=== PATIENT | male | born 1940 | race Caucasian/White ===

== ENCOUNTER → 2018-12-29 11:00 | Outpatient (CLI) | payer MEDICARE, SELFPAY ==
--- NOTE | 2018-12-29 | DI.CT.S_ITS ---
PROCEDURE: CT CHEST ABDOMEN W CON INDICATIONS: ELEVATED LIVER ENZYMES/CHRONIC FATIGUE TECHNIQUE: After the administration of oral contrast and intravenous contrast, 5 mm thick sections acquired from the lung apices to the iliac crests. 5 mm coronal and sagittal reformats were performed, with additional 7 mm coronal MIP reformats through the lungs. For radiation dose reduction, the following was used: automated exposure control, adjustment of mA and/or kV according to patient size. COMPARISON: [facility], CT, SOFT TISSUE NECK W CONTRAST, 04/23/2016, 8:53. FINDINGS: Image quality: Excellent. CHEST: Lungs and pleura: No acute air space opacities on the right but there is a patchy pneumonia pattern density left lower lung, involving the lingular segment of the left lower lobe. A slight posterior left deep costophrenic sulcus effusion is present. This is not accessible for ultrasound-guided aspiration. No pneumothorax. Central and peripheral airways are patent and normal in caliber. More superiorly at the upper border of the area of airspace disease there is an ovoid area of indistinct marginated increased radiodensity measuring up to 1.5 x 2.4 cm (seen on series 7 image 19). This is considered most likely consolidative pneumonia but a mass lesion also could produce the appearance. Mediastinum: Heart size is normal. No pericardial effusion. No mediastinal or hilar adenopathy by size criteria. Thoracic aorta and central pulmonary arteries are normal in size. Esophagus is normal in caliber. No hiatal hernia. Chest wall: No axillary or supraclavicular adenopathy by size criteria. Thyroid gland appears normal where well visualized the except for presence of what appears to be a small cyst within the middle third of the right thyroid lobe measuring only approximately 11 mm in maximal dimension. ABDOMEN: Solid organs: Liver is normal in size and enhancement. Gallbladder appears contracted. Biliary system is non dilated. Pancreas enhances normally. Spleen is normal in size and enhancement. No adrenal nodules. Kidneys are normal in size and enhancement, without hydronephrosis. Peritoneum and bowel: Bowel loops demonstrate normal wall thickness and caliber. No free fluid or air. Nodes and vessels: No retroperitoneal or mesenteric adenopathy by size criteria. Aorta and inferior vena cava are normal in caliber. Bones: No suspicious bony lesions. No vertebral body compression fractures. Miscellaneous: No ventral hernias. IMPRESSION: Pneumonia pattern left lung, with a slight associated posterior left deep costophrenic sulcus slight effusion. As noted above at the upper margin of the area of airspace disease within the left upper lobe there is alveolar infiltration surrounding and abutting an area of what may be dense focal pneumonia but could represent a 1.5 x 2.4 cm mass lesion. This area should be further assessed by plain film after symptoms have resolved to confirm resolution. Through the liver parenchyma no mass or biliary distention is found. Dictated by: Nelson Wheatley M.D. on 12/29/2018 at 12:47 Approved by: Nelson Wheatley M.D. on 12/29/2018 at 12:54
== END ==
PROVIDERS: PCP Internal Medicine; Visit Provider Internal Medicine
DX: R74.8 Abnormal levels of other serum enzymes (principal); R53.82 Chronic fatigue, unspecified; J18.9 Pneumonia, unspecified organism
CPT/HCPCS: 71260; 74160; Q9967

== ENCOUNTER → 2019-01-30 11:02 | Outpatient (CLI) | payer MEDICARE, SELFPAY ==
[2019-01-30 13:24] LABS: BUN Creatinine Ratio 14.4 (6-22); Blood Urea Nitrogen 13 mg/dL (9-20); Estimated Glomerular Filt Rate > 60.0 mL/min (>60)
== END ==
PROVIDERS: PCP Internal Medicine; Visit Provider Internal Medicine
DX: R91.8 Other nonspecific abnormal finding of lung field (principal)
CPT/HCPCS: 36415; 82565; 84520

== ENCOUNTER → 2019-02-05 11:36 | Outpatient (CLI) | payer MEDICARE, SELFPAY ==
--- NOTE | 2019-02-05 11:59 | DI.CT.S_ITS ---
PROCEDURE: CT CHEST W CON INDICATIONS: LUNG MASS TECHNIQUE: After the administration of intravenous contrast, 5 mm thick sections acquired from the pulmonary apices to the posterior costophrenic angles. 7 mm thick coronal and sagittal MIP reformats were acquired. For radiation dose reduction, the following was used: automated exposure control, adjustment of mA and/or kV according to patient size. COMPARISON: [facility], CT, CT CHEST ABDOMEN W CON, 12/29/2018, 11:48. FINDINGS: Image quality: Excellent. Lungs and pleura: No new focal consolidation. There is interval improvement in areas of ill-defined nodular consolidation involving the left upper lobe/lingula since the prior study. Unchanged 5 mm pulmonary nodule seen on image 30 series 2. However, no more distant comparison studies are available. No pleural effusions or pneumothorax. Central and peripheral airways are patent and normal in caliber. Mediastinum: Heart size is normal. Coronary artery calcifications are present. No pericardial effusion. No mediastinal or hilar adenopathy by size criteria. Thoracic aorta and central pulmonary arteries are normal in size. Esophagus is normal in caliber. No hiatal hernia. Bones and chest wall: No suspicious bony lesions. No vertebral body compression fractures. No axillary or supraclavicular adenopathy by size criteria. Thyroid gland contains nonspecific sub-5 mm hypoattenuating nodules which could be better assessed with dedicated ultrasound as clinically warranted. Abdomen: Hepatic steatosis. IMPRESSION: Interval improvement in ill-defined and nodular consolidation seen within the left lung since the prior study in keeping with resolving infectious or inflammatory pneumonia. Unchanged 5 mm pulmonary nodule. No more remote comparison studies are available therefore recommend followup with noncontrast chest CT in 6 months. Additional chronic and incidental findings as above. Dictated by: Dipak Rodriguez M.D. on 02/05/2019 at 12:56 Approved by: Dipak Rodriguez M.D. on 02/05/2019 at 13:03
== END ==
PROVIDERS: PCP Internal Medicine; Visit Provider Internal Medicine
DX: R91.8 Other nonspecific abnormal finding of lung field (principal); I25.10 Atherosclerotic heart disease of native coronary artery without angina pectoris
CPT/HCPCS: 71260; Q9967

== ENCOUNTER → 2019-10-11 09:26 | Outpatient (CLI) | payer MEDICARE, SELFPAY ==
[2019-10-11 10:04] LABS: BUN Creatinine Ratio 16.7 (6-22); Blood Urea Nitrogen 15 mg/dL (9-20); Calcium 9.8 mg/dL (8.4-10.2); Carbon Dioxide 28 mmol/L (22-32); Chloride 100 mmol/L (98-107); Estimated Glomerular Filt Rate > 60.0 mL/min (>60); Glucose 182 mg/dL (80-110); HEMOLYSIS < 15 (0-50); Potassium 4.4 mmol/L (3.4-5.1); Sodium 137 mmol/L (137-145)
--- NOTE | 2019-10-11 10:23 | DI.CT.S_ITS ---
PROCEDURE: CT CHEST W CON INDICATIONS: Abnormal levels of other serum enzymes. Surveillance. Compared prior. Lung nodule, less than [address] TECHNIQUE: After the administration of intravenous contrast, 5 mm thick sections acquired from the pulmonary apices to the posterior costophrenic angles. 1 mm axial lung, 5 mm thick coronal and sagittal reformats and 7 mm axial MIP were acquired. For radiation dose reduction, the following was used: automated exposure control, adjustment of mA and/or kV according to patient size. COMPARISON: [facility], CT, CT CHEST ABDOMEN W CON, 12/29/2018, 11:48. [facility], CT, SOFT TISSUE NECK W CONTRAST, 04/23/2016, 8:53. [facility], CT, CT CHEST W CON, 02/05/2019, 11:43. FINDINGS: Image quality: Excellent. Lungs and pleura: Within the left lower lobe, there is again seen a soft tissue nodule, as on series 3 image 105 that measures 7 x 8 mm. This is mildly increased in size compared to the prior CT. Within this region, poorly defined opacity is seen, which is slightly worsened compared to 02/05/19. No acute air space opacities. No pleural effusions or pneumothorax. Central and peripheral airways are patent and normal in caliber. Mediastinum: Heart size is normal. Coronary artery calcifications are seen. No pericardial effusion. No mediastinal or hilar adenopathy by size criteria. Thoracic aorta and central pulmonary arteries are normal in size. Esophagus is normal in caliber. There is a small hiatal hernia. Bones and chest wall: No suspicious bony lesions. No vertebral body compression fractures. No axillary or supraclavicular adenopathy by size criteria. Thyroid gland demonstrates right sided nodules, including a nodule measuring up to 8 mm. The appearance of the thyroid is similar to 2016. Abdomen: Visualized upper abdominal solid organs appear normal. Upper abdominal bowel loops are normal in caliber. IMPRESSION: There is a left lower lobe pulmonary nodules seen, which is slightly increased in size compared to the prior chest CT. Surrounding inflammatory changes are seen, which are also more prominent than the prior CT. However, the left lower lobe process has clearly improved compared to the 12/29/18 examination, and may simply be related to a recurrent infectious or inflammatory process. As differential diagnosis includes neoplasm, however. Please consider a short term followup noncontrast chest CT in 3 months for further evaluation. Incidental note is made of: Stable stable right thyroid nodules Small hiatal hernia Dictated by: David Castañeda M.D. on 10/11/2019 at 12:45 Approved by: David Castañeda M.D. on 10/11/2019 at 12:51
== END ==
PROVIDERS: PCP Internal Medicine; Referring Provider Internal Medicine; Visit Provider Internal Medicine
DX: R91.8 Other nonspecific abnormal finding of lung field (principal); R74.8 Abnormal levels of other serum enzymes; K44.9 Diaphragmatic hernia without obstruction or gangrene; E04.2 Nontoxic multinodular goiter
CPT/HCPCS: 36415; 71260; 80048; Q9967

== ENCOUNTER → 2020-01-18 11:07 | Outpatient (CLI) | payer MEDICARE, SELFPAY ==
--- NOTE | 2020-01-18 | DI.CT.S_ITS ---
PROCEDURE: CT CHEST WO CON INDICATIONS: Solitary pulmonary nodule TECHNIQUE: Noncontrast 5 mm thick sections acquired from the pulmonary apices to the posterior costophrenic angles. 1 mm lung window, 5 mm thick coronal and sagittal and 7 mm axial MIP reformats were then acquired. For radiation dose reduction, the following was used: automated exposure control, adjustment of mA and/or kV according to patient size. COMPARISON: [facility], CT, CT CHEST W CON, 02/05/2019, 11:43. [facility], CT, CT CHEST ABDOMEN W CON, 12/29/2018, 11:48. [facility], CT, CT CHEST W CON, 10/11/2019, 10:17. FINDINGS: Image quality: Excellent. Lungs and pleura: No acute air space opacities. A previously identified rounded nodule at the left midlung measures 7 x 8 mm as was previously the case 10/11/19. No pleural effusions or pneumothorax. This was originally present on CT scanning 12/29/18 and has not changed. Central and peripheral airways are patent and normal in caliber. Mediastinum: Heart size is normal. No pericardial effusion. No mediastinal adenopathy by size criteria. Thoracic aorta and central pulmonary arteries are normal in size. Esophagus is normal in caliber. No hiatal hernia. Bones and chest wall: No suspicious bony lesions. No vertebral body compression fractures. No axillary or supraclavicular adenopathy by size criteria. Thyroid gland appears normal where well seen.. Abdomen: Visualized upper abdominal solid organs and bowel loops appear normal in the absence of contrast. IMPRESSION: Stable 7 x 8 mm pulmonary nodule left midlung, sharply demarcated, originally present on CT scan in 12/29/18 intermixed with a patchy pneumonia pattern also present at that time. Given the one-year followup no additional evaluation appears warranted in this structure likely represents an old granuloma. Dictated by: Nelson Wheatley M.D. on 01/18/2020 at 12:56 Approved by: Nelson Wheatley M.D. on 01/18/2020 at 13:01
== END ==
PROVIDERS: PCP Internal Medicine; Referring Provider Internal Medicine; Visit Provider Internal Medicine
DX: R91.1 Solitary pulmonary nodule (principal)
CPT/HCPCS: 71250

== ENCOUNTER → 2020-11-07 20:03 | Outpatient (ROUT) | payer MEDICARE, SELFPAY ==
[2020-11-07 20:48] LABS: Alanine Aminotransferase 33 IU/L (<50); Albumin 4.1 g/dL (3.5-5.0); Alkaline Phosphatase 76 U/L (38-126); Aspartate Aminotransferase 38 IU/L (17-59); BUN Creatinine Ratio 18.8 (6-22); Bilirubin Total 0.6 mg/dL (0.2-1.3); Blood Urea Nitrogen 18 mg/dL (9-20); Calcium 9.8 mg/dL (8.4-10.2); Carbon Dioxide 30 mmol/L (22-32); Chloride 99 mmol/L (98-107); Cholesterol 147 mg/dL (140-199); Estimated Glomerular Filt Rate > 60.0 mL/min (>60); Globulin 2.1 g/dL (1.7-4.1); Glucose 146 mg/dL (80-110); HDL Cholesterol 90 mg/dL (40-60); HEMOLYSIS < 15 (0-50); Hemoglobin A1C% w Est Avg Glu 5.9 % (4.0-6.0); LDL Cholesterol Calculated 39 mg/dL (<100); Potassium 4.5 mmol/L (3.4-5.1); Sodium 135 mmol/L (137-145); Total Protein 6.2 g/dL (6.3-8.2); Triglycerides 88 mg/dL (35-150)
== END ==
PROVIDERS: PCP Internal Medicine; Visit Provider Internal Medicine
DX: I10 Essential (primary) hypertension (principal); E11.9 Type 2 diabetes mellitus without complications; E78.2 Mixed hyperlipidemia
CPT/HCPCS: 80053; 80061; 83036

== ENCOUNTER → 2020-12-29 10:00 | Outpatient (CLI) | payer MEDICARE, SELFPAY ==
[2020-12-29 11:50] LABS: COVID19 -Nasal RAPID Negative (Negative)
== END ==
PROVIDERS: PCP Internal Medicine; Visit Provider Physician Assistant
DX: Z01.812 Encounter for preprocedural laboratory examination (principal); Z20.822 Contact with and (suspected) exposure to COVID-19
CPT/HCPCS: 87635; C9803

== ENCOUNTER 2020-12-31 09:23 | Day surgery (SDC) | payer MEDICARE, SELFPAY ==
--- NOTE | 2020-12-31 | PATH_ITS ---
[facility] Accession Number: [id number] . 01 Material submitted: . PART A: colon - ASCENDING COLON POLYPS X3 PART B: colon - TRANSVERSE COLON POLYP . 02 Diagnosis: A. Ascending Colon, Polyps x3, Biopsies: Tubular adenomas. . B. Transverse Colon, Polyp, Biopsy: Tubular adenoma. MRV 01/06/2021 1107 Local . 02 Electronically signed: . Annie Meade MD, Pathologist NPI- [id number] . 01 Gross description: . Part A: ASCENDING COLON POLYPS X3: Received in formalin are 3 fragment(s) of neff, soft tissue measuring 0.3 x 0.3 x 0.2 cm to 0.7 x 0.5 x 0.4 cm submitted entirely in 1 cassette(s) Part B: TRANSVERSE COLON POLYP: Received in formalin is 1 fragment(s) of neff, soft tissue measuring 0.8 x 0.3 x 0.3 cm submitted entirely in 1 cassette(s) /DAVE 01/02/2021 1907 Local . 02 Pathologist provided ICD-10: D12.2, D12.3 . 02 CPT . 138834, 214011 Performed at: 01 [facility] [address], [id number] MD Anthony Sprague MD Phone: [phone] Performed at: 02 [facility] [address] [place], [place] [id number] MD Annie Meade MD Phone: [phone]
[2020-12-31 09:43] VITALS: BP 157/82; PULSE 80; RESP 13; TEMP 36.1; O2SAT 100; BMI 25.1
[2020-12-31] MEDS: LACTATED RINGERS 1,000 ML 200 ML IV (10:04)
--- NOTE | 2020-12-31 10:54 | PM.HP.1 ---
History of Present Illness History of Present Illness Chief complaint: SCREENING COLONOSCOPY Patient History Medical History (Updated 12/31/20 @ 09:43 by Lisa Enciso RN) Hypertension Melanoma Family & Social History Social History: household members family Tobacco & Substance use: Smoking Status Never smoker alcohol intake frequency 3 or more drinks per day Substance Use Type does not use Meds Home Medications and Allergies Home Medications Medication Instructions Recorded Confirmed Type allopurinol 300 mg 1-2XD 12/31/20 12/31/20 History aspirin 325 mg 12/31/20 History atenolol 50 mg DAILY 12/31/20 12/31/20 History atorvastatin 20 mg 12/31/20 History lisinopril 10 mg DAILY 12/31/20 12/31/20 History Allergies Allergy/AdvReac Type Severity Reaction Status Date / Time No Known Drug Allergies Allergy Verified 12/31/20 09:43 Review of Systems Review of Systems ROS: Yes All systems reviewed with the patient and are negative except as otherwise documented Exam Vital Signs (past 8 hours): - 12/31/20 09:43 Temperature 97 F L Pulse Rate 80 Respiratory Rate 13 Blood Pressure 157/82 H Pulse Oximetry 100 Oxygen Delivery Method Room Air Narrative Exam Narrative: Awake alert and oriented x3, pupils equal round reactive to light, oropharynx clear, heart regular rate and rhythm, lungs clear to auscultation bilaterally, abdomen nontender and nondistended, extremities without edema, no gross neurologic deficits noted Assessment & Plan Assessment & Plan narrative: Colon cancer screening for colonoscopy COVID-19 COVID-19 status: Negative
[2020-12-31] MEDS: fentaNYL 250 MCG/5 ML INJ IV (10:55)
[2020-12-31] MEDS: MIDAZOLAM 5 MG/5 ML VIAL IV (11:05)
--- NOTE | 2020-12-31 11:19 | PM.OP.ENDO ---
Operative Date/Time/Diagnoses Date of procedure: 12/31/20 Procedure & Clinicians Study performed: Colonoscopy with cold forceps and snare polypectomies Moderate conscious sedation was administered by the endoscopy nurse and supervised by the endoscopist. The following parameters were monitored: Oxygen saturation, heart rate, blood pressure, and response to care. 5mg midazolam, 100mcg fentanyl given. Same procedure as scheduled: Yes Indications: Colon cancer screening. Date of last colonoscopy unknown. Procedure Notes Procedure in detail: Prior to the procedure, history and physical was performed, and patient medications and allergies were reviewed. Preprocedure nursing history and assessment was reviewed. Patient identification and proposed procedure were verified by the physician and nurse in the procedure room. The physical status of the patient was reassessed after the procedure. After informed consent was obtained including risks, benefits, and alternatives, the scope was passed under direct vision. Throughout the procedure, the patient's blood pressure, pulse, and oxygen saturations were monitored continuously. The colonoscope was introduced through the anus and advanced to the cecum as identified by the appendiceal orifice and ileocecal valve. The patient tolerated the procedure well. Bowel prep was deemed adequate to detect polyps greater than 5 mm. HAMZAH and perianal examinations were unremarkable. Grade 1 internal hemorrhoids noted during retroflexion in the rectum. Two sessile polyps measuring 5 and 6 mm in diameter were removed from the ascending colon with a cold snare and retrieved One 3 mm sessile polyp was removed from the ascending colon with cold forceps and retrieved One 4 mm sessile polyp was removed from the transverse colon with a cold snare and retrieved Impression: Internal hemorrhoids Three polyps measuring 3-6 mm in diameter were removed from the ascending colon One 4 mm polyp was removed from the transverse colon Sedation minutes: 23 Complications: other (EBL minimal. No complications) Post-procedure Plan for aftercare: Follow-up pathology results Repeat colonoscopy at a date to be determined based on pathology results Resume home medications Resume previous diet Patient has a contact number available for emergencies. The signs and symptoms of potential delayed complications were discussed with the patient. Return to normal activities tomorrow. Written discharge instructions were provided to the patient. Discharge home with escort
[2020-12-31 11:20] VITALS: BP 131/77; PULSE 69; RESP 16; TEMP 36.8; O2SAT 97
[2020-12-31 11:25] VITALS: BP 119/72; PULSE 69; RESP 16; O2SAT 97
[2020-12-31 11:30] VITALS: BP 108/67; PULSE 84; RESP 16; O2SAT 97
[2020-12-31 11:31] VITALS: BP 110/66; PULSE 77; RESP 16; TEMP 36.8; O2SAT 99
== END 2020-12-31 11:45 | disposition home or self-care (01) ==
PROVIDERS: PCP Internal Medicine; Referring Provider Internal Medicine; Visit Provider Internal Medicine
PROC: 0DJD8ZZ Inspection of Lower Intestinal Tract, Via Natural or Artificial Opening Endoscopic (ICD-10-PCS; CPT 45378; principal; 2020-12-31 10:30)
DX: Z12.11 Encounter for screening for malignant neoplasm of colon (principal); K64.0 First degree hemorrhoids; I10 Essential (primary) hypertension; Z85.820 Personal history of malignant melanoma of skin; D12.2 Benign neoplasm of ascending colon; D12.3 Benign neoplasm of transverse colon
CPT/HCPCS: 45385; 45380; J2250; J3010

== ENCOUNTER → 2021-01-27 10:08 | Outpatient (CLI) | payer MEDICARE, SELFPAY ==
--- NOTE | 2021-01-27 | DI.CT.S_ITS ---
PROCEDURE: CT CHEST WO CON INDICATIONS: Solitary pulmonary nodule TECHNIQUE: Noncontrast 2.0-2.5 mm thick sections acquired from the pulmonary apices to the posterior costophrenic angles. 7 mm thick axial MIP and 5 mm coronal and sagittal reformats were then acquired. A low radiation dose technique was utilized. COMPARISON: [facility], CT, CT CHEST W CON, 10/11/2019, 10:17. [facility], CT, CT CHEST WO CON, 01/18/2020, 11:06. [facility], CT, CT CHEST ABDOMEN W CON, 12/29/2018, 11:48. [facility], CT, CT CHEST W CON, 02/05/2019, 11:43. FINDINGS: Lungs: Grossly unchanged appearance of 7 mm nodule present in the superior segment of the left lower lobe, dating back to 10/11/19. This may be unchanged dating back to 02/05/19 however suboptimal comparison given differences in exam technique and slice thickness. There is bibasilar scarring/atelectasis. Pleura: No pleural effusion or pneumothorax. Heart: Heart size is normal. No pericardial effusion. Coronary artery calcifications are present. Chest nodes: Normal. Thyroid gland: Poorly defined 1 cm area of low attenuation seen in the right lobe, indeterminate and could be better assessed with dedicated ultrasound. Aorta: Normal in size. Scattered vascular calcifications. Pulmonary arteries: Normal Esophagus: Normal Upper abdomen: No significant findings. Bones: Spondylitic changes and facet arthropathy. IMPRESSION: Overall, grossly unchanged appearance of 7 mm nodule in the left lower lobe. This is encouraging however recommend continued CT surveillance. A final [address] chest is recommended for definitive assessment. Ill-defined focus within the right lobe of the thyroid which would be better assessed with dedicated thyroid ultrasound as clinically warranted. Coronary atherosclerosis. Fleischner Society criteria for SOLID lung nodule followup. Nodule size (mm)Low-risk patientHigh-risk patient<6 (single or multiple)No routine followup.Optional CT at 12 months. 6-8 (single or multiple)CT at 6-12 months, then optional CT at 18-24 mo.CT at 6-12 months, then CT at 18-24 months. >8 (single)CT at 3 months, PET-CT, or biopsy. Same as for low-risk pts. >8 (multiple)CT at 3-6 months, then optional CT at 18-24 mo.CT at 3-6 months, then CT at 18-24 months. Fleischner Society criteria for SUB-SOLID lung nodule followup. Solitary pure ground-glass nodules<6 mm (ground glass or part solid)No followup needed. 6 mm or larger (ground glass)CT at 6-12 months to confirm persistence, then CT every 2 years until 5 years.6 mm or larger (part solid)CT at 3-6 months to confirm persistence, then annual CT until 5 years if unchanged and solid component remains <6 mm. Multiple sub-solid nodules<6 mmCT at 3-6 months, then CT consider at 2 & 4 years for high risk patients. [address] at 3-6 months. Subsequent management based on most suspicious lesions. Recommendations do not apply to lung cancer screening, patients with immunosuppression, or patients with known primary cancer. Dictated by: Dipak Rodriguez M.D. on 01/27/2021 at 11:34 Approved by: Dipka Rodriguez M.D. on 01/27/2021 at 11:42
== END ==
PROVIDERS: PCP Internal Medicine; Referring Provider Internal Medicine; Visit Provider Internal Medicine
DX: R91.1 Solitary pulmonary nodule (principal); I25.10 Atherosclerotic heart disease of native coronary artery without angina pectoris
CPT/HCPCS: 71250

== ENCOUNTER → 2022-03-17 10:16 | Outpatient (CLI) | payer MEDICARE, SELFPAY | PROVIDERS: PCP Internal Medicine; Visit Provider Physician Assistant | DX: R30.0 Dysuria (principal) | CPT/HCPCS: 87086 ==

== ENCOUNTER → 2022-04-09 15:03 | Outpatient (CLI) | payer MEDICARE, SELFPAY ==
[2022-04-09 15:28] LABS: Hematocrit 41.4 % (41-53); Hemoglobin 13.6 g/dL (13.5-17.5); Mean Corpuscular HGB Conc 32.8 % (30-36); Mean Corpuscular Hemoglobin 31.7 PG (26-34); Mean Corpuscular Volume 96.7 fL (80-100); Platelet Count 169 X10^3/uL (150-400); Red Blood Cell Count 4.28 X10^6/uL (4.5-5.9); Red Cell Distribution Width 14.7 % (11.6-14.8); White Blood Cell Count 5.3 X10^3/uL (4.5-11.0)
[2022-04-09 15:36] LABS: Hemoglobin A1C% w Est Avg Glu 5.9 % (4.0-6.0)
[2022-04-09 17:23] LABS: Creatinine Urine Random 89.7 mg/dL
[2022-04-09 17:24] LABS: Alanine Aminotransferase 32 IU/L (<50); Albumin 4.1 g/dL (3.5-5.0); Albumin Globulin Ratio 2.1 (1.0-2.8); Alkaline Phosphatase 82 U/L (38-126); Aspartate Aminotransferase 40 IU/L (17-59); BUN Creatinine Ratio 15.3 (6-22); Bilirubin Total 0.7 mg/dL (0.2-1.3); Blood Urea Nitrogen 15 mg/dL (9-20); Calcium 9.5 mg/dL (8.4-10.2); Carbon Dioxide 28 mmol/L (22-32); Chloride 100 mmol/L (98-107); Cholesterol 126 mg/dL (140-199); Estimated Glomerular Filt Rate > 60 mL/min (>60); Glucose 98 mg/dL (80-110); HDL Cholesterol 79 mg/dL (40-60); HEMOLYSIS < 15 (0-50); LDL Cholesterol Calculated 34 mg/dL (<100); Potassium 4.6 mmol/L (3.4-5.1); Sodium 135 mmol/L (137-145); Total Protein 6.1 g/dL (6.3-8.2); Triglycerides 67 mg/dL (35-150)
[2022-04-09 17:29] LABS: Microalbumin Urine Random < 0.6 mg/dL (0-1.6)
== END ==
PROVIDERS: PCP Internal Medicine; Referring Provider Internal Medicine; Visit Provider Internal Medicine
DX: E11.69 Type 2 diabetes mellitus with other specified complication (principal); E78.2 Mixed hyperlipidemia; E78.5 Hyperlipidemia, unspecified; I10 Essential (primary) hypertension; M1A.9XX0 Chronic gout, unspecified, without tophus (tophi)
CPT/HCPCS: 36415; 80053; 80061; 82043; 82570; 83036; 84443; 85027

== ENCOUNTER → 2022-10-11 10:34 | Outpatient (CLI) | payer MEDICARE, SELFPAY | PROVIDERS: PCP Internal Medicine; Visit Provider Nurse Practitioner Family | DX: L72.3 Sebaceous cyst (principal) | CPT/HCPCS: 87070; 87205 ==

== ENCOUNTER → 2022-10-26 10:45 | Outpatient (CLI) | payer MEDICARE, SELFPAY ==
[2022-10-26 12:41] LABS: Hemoglobin A1C% w Est Avg Glu 6.1 % (4.0-6.0)
[2022-10-26 13:19] LABS: BUN Creatinine Ratio 13.3 (6-22); Blood Urea Nitrogen 14 mg/dL (9-20); Calcium 9.4 mg/dL (8.4-10.2); Carbon Dioxide 28 mmol/L (22-32); Chloride 98 mmol/L (98-107); Estimated Glomerular Filt Rate > 60 mL/min (>60); Glucose 100 mg/dL (80-110); HEMOLYSIS < 15 (0-50); Potassium 4.5 mmol/L (3.4-5.1); Sodium 136 mmol/L (137-145)
== END ==
PROVIDERS: PCP Internal Medicine; Referring Provider Internal Medicine; Visit Provider Internal Medicine
DX: E11.42 Type 2 diabetes mellitus with diabetic polyneuropathy (principal); I10 Essential (primary) hypertension
CPT/HCPCS: 36415; 80048; 83036

== ENCOUNTER → 2023-03-25 12:22 | Outpatient (CLI) | payer MEDICARE, SELFPAY ==
[2023-03-25 13:33] LABS: Aspartate Aminotransferase 44 IU/L (17-59); BUN Creatinine Ratio 14.9 (6-22); Blood Urea Nitrogen 14 mg/dL (9-20); Calcium 9.3 mg/dL (8.4-10.2); Carbon Dioxide 29 mmol/L (22-32); Chloride 97 mmol/L (98-107); Cholesterol 143 mg/dL (140-199); Estimated Glomerular Filt Rate > 60 mL/min (>60); Glucose 101 mg/dL (80-110); HDL Cholesterol 105 mg/dL (40-60); HEMOLYSIS < 15 (0-50); LDL Cholesterol Calculated 19 mg/dL (<100); Potassium 4.8 mmol/L (3.4-5.1); Sodium 131 mmol/L (137-145); Triglycerides 94 mg/dL (35-150)
[2023-03-25 16:54] LABS: Microalbumin Urine Random < 0.6 mg/dL (0-1.6)
[2023-03-25 17:14] LABS: Creatinine Urine Random 80.9 mg/dL
[2023-03-26 08:47] LABS: x Labcorp Estim. Avg Glu (eAG) 114 mg/dL (.); x Labcorp Hemoglobin A1c 5.6 % (4.8-5.6)
== END ==
PROVIDERS: PCP Internal Medicine; Referring Provider Internal Medicine; Visit Provider Internal Medicine
DX: E11.42 Type 2 diabetes mellitus with diabetic polyneuropathy (principal); E78.2 Mixed hyperlipidemia; I10 Essential (primary) hypertension
CPT/HCPCS: 36415; 80048; 80061; 82043; 82570; 83036; 84450

== ENCOUNTER → 2023-10-27 11:44 | Outpatient (CLI) | payer MEDICARE, SELFPAY ==
[2023-10-27 13:13] LABS: Hemoglobin A1C% w Est Avg Glu 5.8 % (4.0-6.0)
[2023-10-27 13:16] LABS: BUN Creatinine Ratio 15.2 (6-22); Blood Urea Nitrogen 15 mg/dL (9-20); Calcium 9.8 mg/dL (8.4-10.2); Carbon Dioxide 27 mmol/L (22-32); Chloride 101 mmol/L (98-107); Estimated Glomerular Filt Rate > 60 mL/min (>60); Glucose 78 mg/dL (80-110); HEMOLYSIS < 15 (0-50); Potassium 4.9 mmol/L (3.4-5.1); Sodium 137 mmol/L (137-145)
== END ==
PROVIDERS: PCP Internal Medicine; Referring Provider Internal Medicine; Visit Provider Internal Medicine
DX: E11.42 Type 2 diabetes mellitus with diabetic polyneuropathy (principal)
CPT/HCPCS: 36415; 80048; 83036

== ENCOUNTER → 2024-04-26 12:19 | Outpatient (CLI) | payer MEDICARE, SELFPAY ==
[2024-04-26 13:15] LABS: Hemoglobin A1C% w Est Avg Glu 5.6 % (4.0-6.0)
[2024-04-26 13:35] LABS: Aspartate Aminotransferase 37 IU/L (17-59); BUN Creatinine Ratio 13.7 (6-22); Blood Urea Nitrogen 13 mg/dL (9-20); Calcium 9.4 mg/dL (8.4-10.2); Carbon Dioxide 25 mmol/L (22-32); Chloride 101 mmol/L (98-107); Cholesterol 151 mg/dL (140-199); Estimated Glomerular Filt Rate > 60 mL/min (>60); Glucose 106 mg/dL (80-110); HDL Cholesterol 100 mg/dL (40-60); HEMOLYSIS < 15 (0-50); LDL Cholesterol Calculated 36 mg/dL (<100); Potassium 4.6 mmol/L (3.4-5.1); Sodium 133 mmol/L (137-145); Triglycerides 74 mg/dL (35-150)
[2024-04-26 14:33] LABS: Creatinine Urine Random 113.05 mg/dL
[2024-04-26 14:35] LABS: Microalbumin Urine Random 0.7 mg/dL (0-1.6)
== END ==
PROVIDERS: PCP Internal Medicine; Referring Provider Internal Medicine; Visit Provider Internal Medicine
DX: E11.42 Type 2 diabetes mellitus with diabetic polyneuropathy (principal); I10 Essential (primary) hypertension; E78.2 Mixed hyperlipidemia
CPT/HCPCS: 36415; 80048; 80061; 82043; 82570; 83036; 84450

== ENCOUNTER → 2024-10-22 11:49 | Outpatient (CLI) | payer MEDICARE, SELFPAY ==
[2024-10-22 13:10] LABS: Hemoglobin A1C% w Est Avg Glu 5.6 % (4.0-6.0)
[2024-10-22 13:38] LABS: Aspartate Aminotransferase 35 IU/L (17-59); BUN Creatinine Ratio 17.3 (6-22); Blood Urea Nitrogen 17 mg/dL (9-20); Carbon Dioxide 28 mmol/L (22-32); Chloride 99 mmol/L (98-107); Cholesterol 133 mg/dL (140-199); Estimated Glomerular Filt Rate > 60 mL/min (>60); Glucose 95 mg/dL (80-110); HDL Cholesterol 84 mg/dL (40-60); HEMOLYSIS < 15 (0-50); LDL Cholesterol Calculated 34 mg/dL (<100); Potassium 4.8 mmol/L (3.4-5.1); Sodium 134 mmol/L (137-145); Triglycerides 75 mg/dL (35-150)
== END ==
PROVIDERS: PCP Internal Medicine; Referring Provider Internal Medicine; Visit Provider Internal Medicine
DX: E11.42 Type 2 diabetes mellitus with diabetic polyneuropathy (principal); I10 Essential (primary) hypertension; E78.2 Mixed hyperlipidemia
CPT/HCPCS: 36415; 80048; 80061; 83036; 84450

== ENCOUNTER → 2025-06-24 11:48 | Outpatient (CLI) | payer MEDICARE, SELFPAY ==
[2025-06-24 12:22] LABS: Hemoglobin A1C% w Est Avg Glu 5.8 % (4.0-6.0)
[2025-06-24 12:31] LABS: Blood Urea Nitrogen 13 mg/dL (9-20); Calcium 10.0 mg/dL (8.4-10.2); Carbon Dioxide 28 mmol/L (22-32); Chloride 97 mmol/L (98-107); Estimated Glomerular Filt Rate > 60 mL/min (>60); Glucose 110 mg/dL (70-99); HEMOLYSIS 19 (0-50); Potassium 4.9 mmol/L (3.4-5.1); Sodium 132 mmol/L (137-145)
== END ==
PROVIDERS: PCP Internal Medicine; Referring Provider Internal Medicine; Visit Provider Internal Medicine
DX: E11.42 Type 2 diabetes mellitus with diabetic polyneuropathy (principal); E78.2 Mixed hyperlipidemia
CPT/HCPCS: 36415; 80048; 83036; 84450